=== PATIENT | female | born 1975 | race Caucasian/White ===

== ENCOUNTER → 2017-11-01 | Outpatient (CLI) | payer OTHER ==
[~2017-11-01] MED LIST: ACYC200 PO; ACYC400 PO; AEROBIKA1 EACH INH; ALBU90OI; ALBU90OI INH; AZIT500 PO; Acetaminophen-1 EAC1 PO; Ambien10 MG PO; BENZ100A PO; BISO5 PO; Bactrim Ds Tab1 EACH; Bactrim Ds Tab1 EACH PO; Bisoprolol Fumar5 MG PO; CEPH500 PO; Cleocin HCl150 MG PO; DEXT30SU PO; DIAZ10 PO; DIAZ2 PO; DOCU100 PO; DULERA 200 MCG/13 GM INH; ESTR.05PBW; ESTR.1TPW TOP; ESTR2 PO; ESTRADIOL1 MG; ESTROVEN 155 M155 MG PO; FLUO10 PO; GUAI120S1 PO; GUAI600T33 PO; GUAIFENESIN1200 MG PO; HYDR1TAB94 PO; IBUP600 PO; IBUP800 PO; LACTULOSE20 GM/30 M PO; METPRE4DP PO; MONT10T PO; MULVITMIND; Microgestin1 EACH; Multivitamin1 EAC1 PO; NASAL DECONGEST30 MG PO; Norco 10-325 T1 EACH PO; Norco 5-325 Ta1 EACH PO; OMEP20ER; OXYACE5T PO; OXYACE7.5T PO; Omeprazole20 M1; Omeprazole20 M1 PO; PRODEXEL PO; PROM25 PO; Percocet 5-3251 EACH PO; Phentermine HCl15 MG PO; Prednisone20 MG PO; Prozac20 MG PO; Pyridium200 MG PO; QUET300 PO; QUETIAPINE FUM400 MG; QUETIAPINE FUMA50 MG PO; TYLECOD3; Ultram50 MG PO; Zithromax250 MG PO; Zofran Odt4 MG PO; Zofran Odt4 MG SL; Zofran4 MG
[2017-11-01 12:05] LABS: Bilirubin, Urine Neg (Neg); Blood, Urine 1+ (Neg); Glucose Qualitative, Urine Neg (Neg); Ketones, Urine Neg (Neg); Leukocyte Esterase, Urine 1+ (Neg); Nitrite, Urine Neg (Neg); Protein, Urine 1+ (Neg); Specific Gravity, Urine 1.015 (1.003-1.022); Urobilinogen, Urine NORM (Normal)
[2017-11-01 12:14] LABS: Appearance, Urine Hazy (Clear); Color, Urine Yellow (P-Yellow)
[2017-11-01 12:17] LABS: Bacteria Few /hpf; Red Blood Cells, Urine 0-2 /hpf (0-2); Squamous Epithelial Cells Many /hpf (Few)
== END ==
LOC: LAB 09:39
PROVIDERS: Nurse Practitioner Family
DX: R30.0 Dysuria (principal)
CPT/HCPCS: 81001; 87086; 87147

== ENCOUNTER 2017-11-11 16:19 | Emergency (ER) | payer OTHER ==
[~2017-11-11] VITALS: Ht 170.2 cm; Wt 122.5 kg
[~2017-11-11 16:19] MED LIST changes: -ACYC200 PO; -ACYC400 PO; -AEROBIKA1 EACH INH; -BENZ100A PO; -Bactrim Ds Tab1 EACH; -Bisoprolol Fumar5 MG PO; -DEXT30SU PO; -DIAZ2 PO; -DULERA 200 MCG/13 GM INH; -ESTR2 PO; -GUAI600T33 PO; -MONT10T PO; -Prozac20 MG PO; -TYLECOD3
[2017-11-11 17:09] LABS: BASOPHILS ABSOLUTE AUTO 0.04 K/mm3 (0.00-0.23); BASOPHILS PERCENT AUTO 1 % (0-2); EOSINOPHILS ABSOLUTE AUTO 0.33 K/mm3 (0.00-0.68); EOSINOPHILS PERCENT AUTO 6 % (0-6); Hematocrit 39.9 % (33.0-51.0); Hemoglobin 12.9 g/dL (11.5-16.0); IMMATURE GRAN ABSOLUTE AUTO 0.01 K/mm3 (0.00-0.10); IMMATURE GRAN PERCENT AUTO 0 % (0-1); LYMPHOCYTES ABSOLUTE AUTO 1.36 K/mm3 (0.84-5.20); LYMPHOCYTES PERCENT AUTO 23 % (21-46); MONOCYTES ABSOLUTE AUTO 0.47 K/mm3 (0.16-1.47); MONOCYTES PERCENT AUTO 8 % (4-13); Mean Corpuscular HGB 32.2 pg (26.0-34.0); Mean Corpuscular HGB Conc 32.3 g/dL (31.5-36.5); Mean Corpuscular Volume 100 fL (80-100); Mean Platelet Volume 9.9 fL (9.1-12.4); NEUTROPHILS ABSOLUTE AUTO 3.68 K/mm3 (1.96-9.15); NEUTROPHILS PERCENT AUTO 62 % (41-73); Platelet Count 256 K/mm3 (150-400); RDW Coefficient Variation 12.5 % (11.7-14.2); Red Blood Cell Count 4.01 M/mm3 (3.80-5.20); White Blood Cell Count 5.89 K/mm3 (4.00-11.30)
[2017-11-11 17:27] LABS: Alanine Aminotransfer (ALT/SGP 39 U/L (12-78); Albumin, Blood 3.3 g/dL (3.4-5.0); Albumin/Globulin Ratio 0.8 (0.8-1.8); Alk Phos 92 U/L (50-136); Anion Gap 9 mmol/L (6-16); Aspartate Aminotrans (AST/SGOT 31 U/L (12-37); Bilirubin, Total 0.4 mg/dL (0.1-1.0); Blood Urea Nitrogen 12 mg/dL (8-24); Bun/Creatinine Ratio 17.3 (12.0-20.0); CO2, Blood 25 mmol/L (21-32); Calcium, Blood 8.5 mg/dL (8.5-10.1); Chloride, Blood 105 mmol/L (98-108); Creatinine, Blood 0.69 mg/dL (0.40-1.00); Globulin, Blood 4.1 g/dL (2.2-4.0); Glomerular Filtration Rate >60 (60-); Glucose, Blood 103 mg/dL (70-99); Potassium, Blood 3.9 mmol/L (3.5-5.5); Sodium, Blood 139 mmol/L (136-145); Total Protein, Blood 7.4 g/dL (6.4-8.2)
[2017-11-11] MEDS ORDERED: DIAZ2 PO (17:56)
[2017-11-11] MEDS ORDERED: ACYC200 PO (17:56)
[2017-11-11] MEDS ORDERED: ALBU90OI INH (17:58)
[2017-11-11] MEDS ORDERED: AEROBIKA1 EACH INH (17:58)
== END 2017-11-11 20:04 | disposition home or self-care (01) ==
LOC: ER 16:19
PROVIDERS: Student in an Organized Health Care Education/Training Program
DX: J44.9 Chronic obstructive pulmonary disease, unspecified (principal); Z88.0 Allergy status to penicillin; Z79.899 Other long term (current) drug therapy; Z90.710 Acquired absence of both cervix and uterus; Z90.89 Acquired absence of other organs; Z87.891 Personal history of nicotine dependence
CPT/HCPCS: 36415; 71046; 80053; 85025; 94640; 96374; 99283; J1100

== ENCOUNTER 2017-11-17 13:52 | Inpatient (IN) | payer OTHER ==
[~2017-11-17] VITALS: Ht 170.2 cm; Wt 128.0 kg
[~2017-11-17 13:52] MED LIST changes: +ACYC200 PO; +AEROBIKA1 EACH INH; +DIAZ2 PO
[2017-11-17 14:16] LABS: BASOPHILS ABSOLUTE AUTO 0.05 K/mm3 (0.00-0.23); BASOPHILS PERCENT AUTO 1 % (0-2); EOSINOPHILS ABSOLUTE AUTO 0.78 K/mm3 (0.00-0.68); EOSINOPHILS PERCENT AUTO 8 % (0-6); Hematocrit 41.2 % (33.0-51.0); Hemoglobin 13.4 g/dL (11.5-16.0); IMMATURE GRAN PERCENT AUTO 1 % (0-1); LYMPHOCYTES PERCENT AUTO 18 % (21-46); MONOCYTES PERCENT AUTO 9 % (4-13); Mean Corpuscular HGB 32.1 pg (26.0-34.0); Mean Corpuscular HGB Conc 32.5 g/dL (31.5-36.5); Mean Corpuscular Volume 99 fL (80-100); Mean Platelet Volume 9.8 fL (9.1-12.4); NEUTROPHILS ABSOLUTE AUTO 6.12 K/mm3 (1.96-9.15); NEUTROPHILS PERCENT AUTO 64 % (41-73); Platelet Count 320 K/mm3 (150-400); RDW Coefficient Variation 12.6 % (11.7-14.2); RDW Standard Deviation 45.6 fL (35.1-46.3); Red Blood Cell Count 4.17 M/mm3 (3.80-5.20); White Blood Cell Count 9.65 K/mm3 (4.00-11.30)
[2017-11-17 14:28] LABS: Alanine Aminotransfer (ALT/SGP 38 U/L (12-78); Albumin, Blood 3.2 g/dL (3.4-5.0); Albumin/Globulin Ratio 0.7 (0.8-1.8); Alk Phos 113 U/L (50-136); Anion Gap 8 mmol/L (6-16); Aspartate Aminotrans (AST/SGOT 27 U/L (12-37); Bilirubin, Total 0.2 mg/dL (0.1-1.0); Blood Urea Nitrogen 10 mg/dL (8-24); Bun/Creatinine Ratio 15.6 (12.0-20.0); CO2, Blood 25 mmol/L (21-32); Calcium, Blood 8.2 mg/dL (8.5-10.1); Chloride, Blood 106 mmol/L (98-108); Creatinine, Blood 0.64 mg/dL (0.40-1.00); Globulin, Blood 4.6 g/dL (2.2-4.0); Glomerular Filtration Rate >60 (60-); Glucose, Blood 111 mg/dL (70-99); Potassium, Blood 4.2 mmol/L (3.5-5.5); Sodium, Blood 139 mmol/L (136-145); Total Protein, Blood 7.8 g/dL (6.4-8.2)
[2017-11-17 14:33] LABS: International Normalized Ratio 0.97; Prothrombin Time Results 10.1 Sec (9.7-11.5)
[2017-11-17 14:40] LABS: Troponin I <0.015 ng/mL (0.000-0.040)
[2017-11-17] MEDS ORDERED: IBUP800 PO (14:50)
[2017-11-17] MEDS ORDERED: Bactrim Ds Tab1 EACH (14:50)
[2017-11-17] MEDS ORDERED: TYLECOD3 (14:50)
[2017-11-17] MEDS ORDERED: Bisoprolol Fumar5 MG PO (14:51)
[2017-11-17] MEDS ORDERED: Prozac20 MG PO (14:51)
[2017-11-17] MEDS ORDERED: QUET300 PO (14:52)
[2017-11-17] MEDS ORDERED: ESTR2 PO (14:52)
[2017-11-17] MEDS ORDERED: ACYC400 PO (14:53)
[2017-11-17 16:07] LABS: Influenza A Negative (NEGATIVE); Influenza B Negative (NEGATIVE)
[2017-11-17] MEDS ORDERED: DIAZ10 PO (18:12)
[2017-11-17] MEDS ORDERED: Omeprazole20 M1 PO (18:13)
[2017-11-17] MEDS ORDERED: GUAI600T33 PO (18:15)
[2017-11-17] MEDS ORDERED: DEXT30SU PO (18:18)
[2017-11-17 21:35] LABS: Source, Urine Voided
[2017-11-17 21:40] LABS: Bilirubin, Urine Neg (Neg); Blood, Urine Neg (Neg); Glucose Qualitative, Urine Neg (Neg); Ketones, Urine Neg (Neg); Leukocyte Esterase, Urine Neg (Neg); Nitrite, Urine Neg (Neg); Protein, Urine 1+ (Neg); Urobilinogen, Urine NORM (Normal)
[2017-11-17 21:47] LABS: Appearance, Urine Clear (Clear); Color, Urine Yellow (P-Yellow)
[2017-11-18 04:58] LABS: BASOPHILS ABSOLUTE AUTO 0.03 K/mm3 (0.00-0.23); BASOPHILS PERCENT AUTO 0 % (0-2); EOSINOPHILS ABSOLUTE AUTO 0.02 K/mm3 (0.00-0.68); EOSINOPHILS PERCENT AUTO 0 % (0-6); Hematocrit 38.6 % (33.0-51.0); Hemoglobin 12.3 g/dL (11.5-16.0); IMMATURE GRAN ABSOLUTE AUTO 0.35 K/mm3 (0.00-0.10); IMMATURE GRAN PERCENT AUTO 2 % (0-1); LYMPHOCYTES ABSOLUTE AUTO 1.04 K/mm3 (0.84-5.20); LYMPHOCYTES PERCENT AUTO 7 % (21-46); MONOCYTES ABSOLUTE AUTO 0.35 K/mm3 (0.16-1.47); MONOCYTES PERCENT AUTO 2 % (4-13); Mean Corpuscular HGB 32.2 pg (26.0-34.0); Mean Corpuscular HGB Conc 31.9 g/dL (31.5-36.5); Mean Corpuscular Volume 101 fL (80-100); Mean Platelet Volume 9.9 fL (9.1-12.4); NEUTROPHILS ABSOLUTE AUTO 12.53 K/mm3 (1.96-9.15); NEUTROPHILS PERCENT AUTO 88 % (41-73); Platelet Count 321 K/mm3 (150-400); RDW Coefficient Variation 12.7 % (11.7-14.2); RDW Standard Deviation 46.9 fL (35.1-46.3); Red Blood Cell Count 3.82 M/mm3 (3.80-5.20); White Blood Cell Count 14.32 K/mm3 (4.00-11.30)
[2017-11-18 05:20] LABS: Anion Gap 11 mmol/L (6-16); Blood Urea Nitrogen 7 mg/dL (8-24); Bun/Creatinine Ratio 12.3 (12.0-20.0); CO2, Blood 20 mmol/L (21-32); Calcium, Blood 7.6 mg/dL (8.5-10.1); Chloride, Blood 108 mmol/L (98-108); Creatinine, Blood 0.57 mg/dL (0.40-1.00); Glomerular Filtration Rate >60 (60-); Glucose, Blood 216 mg/dL (70-99); Potassium, Blood 3.3 mmol/L (3.5-5.5); Sodium, Blood 139 mmol/L (136-145)
[2017-11-18 05:29] LABS: Adenovirus Not Detected (NOT DETECT); Bordetella pertussis Not Detected (NOT DETECT); Chlamydophila pneumoniae Not Detected (NOT DETECT); Coronavirus 229E Not Detected (NOT DETECT); Coronavirus HKU1 Not Detected (NOT DETECT); Coronavirus NL63 Not Detected (NOT DETECT); Coronavirus OC43 Not Detected (NOT DETECT); Human Metapneumovirus Not Detected (NOT DETECT); Human Rhinovirus/Enterovirus Not Detected (NOT DETECT); Influenza A/2009-H1 Not Detected (NOT DETECT); Influenza A/H1 Not Detected (NOT DETECT); Influenza A/H3 Not Detected (NOT DETECT); Influenza B Not Detected (NOT DETECT); Mycoplasma pneumoniae Not Detected (NOT DETECT); Parainfluenza Virus 1 Not Detected (NOT DETECT); Parainfluenza Virus 2 Not Detected (NOT DETECT); Parainfluenza Virus 3 Not Detected (NOT DETECT); Parainfluenza Virus 4 Not Detected (NOT DETECT); Respiratory Syncytial Virus Not Detected (NOT DETECT)
[2017-11-18 06:38] LABS: Influenza A Not Detected (NOT DETECT)
[2017-11-20 05:19] LABS: Hematocrit 36.8 % (33.0-51.0); Hemoglobin 11.5 g/dL (11.5-16.0); Mean Corpuscular HGB 31.7 pg (26.0-34.0); Mean Corpuscular HGB Conc 31.3 g/dL (31.5-36.5); Mean Corpuscular Volume 101 fL (80-100); Mean Platelet Volume 9.9 fL (9.1-12.4); Platelet Count 257 K/mm3 (150-400); RDW Coefficient Variation 12.5 % (11.7-14.2); RDW Standard Deviation 47.6 fL (35.1-46.3); Red Blood Cell Count 3.63 M/mm3 (3.80-5.20); White Blood Cell Count 12.23 K/mm3 (4.00-11.30)
[2017-11-20 05:37] LABS: Percent Saturation 21.2 % (15.0-50.0)
[2017-11-20 05:46] LABS: BAND PERCENT MAN 4 % (0-8); BASOPHILS PERCENT MAN 0 % (0-2); EOSINOPHILS ABSOLUTE MAN 0.12 K/mm3 (0.00-0.68); EOSINOPHILS PERCENT MAN 1 % (0-6); LYMPHOCYTES ABSOLUTE MAN 1.95 K/mm3 (0.84-5.20); LYMPHOCYTES PERCENT MAN 16 % (21-46); MONOCYTES ABSOLUTE MAN 0.48 K/mm3 (0.16-1.47); MONOCYTES PERCENT MAN 4 % (4-13); MYELOCYTE ABSOLUTE MAN 0.24 K/mm3 (0.00-0.00); MYELOCYTE PERCENT MAN 2 % (0-0); NEUTROPHILS ABSOLUTE MAN 9.41 K/mm3 (1.96-9.15); SEG NEUTROPHILS PERCENT MAN 73 % (41-73); TOTAL CELLS COUNTED 100
[2017-11-20 06:21] LABS: Thyroid Stimulating Hormone 2.9 uIU/mL (0.360-4.800)
[2017-11-21 07:00] LABS: BASOPHILS ABSOLUTE AUTO 0.04 K/mm3 (0.00-0.23); BASOPHILS PERCENT AUTO 0 % (0-2); EOSINOPHILS ABSOLUTE AUTO 0.58 K/mm3 (0.00-0.68); EOSINOPHILS PERCENT AUTO 6 % (0-6); Hematocrit 37.9 % (33.0-51.0); Hemoglobin 12.2 g/dL (11.5-16.0); IMMATURE GRAN ABSOLUTE AUTO 0.56 K/mm3 (0.00-0.10); IMMATURE GRAN PERCENT AUTO 6 % (0-1); LYMPHOCYTES ABSOLUTE AUTO 2.34 K/mm3 (0.84-5.20); LYMPHOCYTES PERCENT AUTO 25 % (21-46); MONOCYTES ABSOLUTE AUTO 0.68 K/mm3 (0.16-1.47); MONOCYTES PERCENT AUTO 7 % (4-13); Mean Corpuscular HGB Conc 32.2 g/dL (31.5-36.5); Mean Corpuscular Volume 100 fL (80-100); Mean Platelet Volume 9.3 fL (9.1-12.4); NEUTROPHILS ABSOLUTE AUTO 5.24 K/mm3 (1.96-9.15); NEUTROPHILS PERCENT AUTO 56 % (41-73); NRBC ABSOLUTE 0.04 K/mm3 (0.00-0.02); NRBC Auto 0.4 /100 WBC (0.0-0.2); Platelet Count 256 K/mm3 (150-400); RDW Coefficient Variation 12.6 % (11.7-14.2); RDW Standard Deviation 46.3 fL (35.1-46.3); Red Blood Cell Count 3.81 M/mm3 (3.80-5.20); White Blood Cell Count 9.44 K/mm3 (4.00-11.30)
[2017-11-21 07:21] LABS: Alanine Aminotransfer (ALT/SGP 31 U/L (12-78); Albumin, Blood 2.6 g/dL (3.4-5.0); Albumin/Globulin Ratio 0.7 (0.8-1.8); Alk Phos 87 U/L (50-136); Anion Gap 7 mmol/L (6-16); Aspartate Aminotrans (AST/SGOT 22 U/L (12-37); Bilirubin, Total 0.3 mg/dL (0.1-1.0); Blood Urea Nitrogen 11 mg/dL (8-24); CO2, Blood 25 mmol/L (21-32); Calcium, Blood 7.7 mg/dL (8.5-10.1); Chloride, Blood 107 mmol/L (98-108); Creatinine, Blood 0.69 mg/dL (0.40-1.00); Globulin, Blood 3.9 g/dL (2.2-4.0); Glomerular Filtration Rate >60 (60-); Glucose, Blood 78 mg/dL (70-99); Sodium, Blood 139 mmol/L (136-145); Total Protein, Blood 6.5 g/dL (6.4-8.2)
[2017-11-22 05:35] LABS: Hematocrit 39.5 % (33.0-51.0); Hemoglobin 12.7 g/dL (11.5-16.0); Mean Corpuscular HGB 31.9 pg (26.0-34.0); Mean Corpuscular HGB Conc 32.2 g/dL (31.5-36.5); Mean Corpuscular Volume 99 fL (80-100); Mean Platelet Volume 9.3 fL (9.1-12.4); Platelet Count 262 K/mm3 (150-400); RDW Coefficient Variation 12.4 % (11.7-14.2); RDW Standard Deviation 45.3 fL (35.1-46.3); Red Blood Cell Count 3.98 M/mm3 (3.80-5.20); White Blood Cell Count 8.77 K/mm3 (4.00-11.30)
[2017-11-22 05:57] LABS: Alanine Aminotransfer (ALT/SGP 39 U/L (12-78); Albumin, Blood 2.5 g/dL (3.4-5.0); Albumin/Globulin Ratio 0.6 (0.8-1.8); Alk Phos 89 U/L (50-136); Anion Gap 7 mmol/L (6-16); Aspartate Aminotrans (AST/SGOT 28 U/L (12-37); Bilirubin, Total 0.3 mg/dL (0.1-1.0); Blood Urea Nitrogen 11 mg/dL (8-24); Bun/Creatinine Ratio 13.9 (12.0-20.0); CO2, Blood 28 mmol/L (21-32); Calcium, Blood 7.9 mg/dL (8.5-10.1); Chloride, Blood 104 mmol/L (98-108); Creatinine, Blood 0.79 mg/dL (0.40-1.00); Globulin, Blood 4.1 g/dL (2.2-4.0); Glomerular Filtration Rate >60 (60-); Glucose, Blood 82 mg/dL (70-99); Potassium, Blood 4.1 mmol/L (3.5-5.5); Sodium, Blood 139 mmol/L (136-145); Total Protein, Blood 6.6 g/dL (6.4-8.2)
[2017-11-22 06:00] LABS: BAND PERCENT MAN 1 % (0-8); BASOPHILS PERCENT MAN 0 % (0-2); EOSINOPHILS ABSOLUTE MAN 0.61 K/mm3 (0.00-0.68); EOSINOPHILS PERCENT MAN 7 % (0-6); LYMPHOCYTES % ATYPICAL MANUAL 6 % (0-0); LYMPHOCYTES ABSOLUTE MAN 2.28 K/mm3 (0.84-5.20); LYMPHOCYTES PERCENT MAN 20 % (21-46); METAMYELOCYTE ABSOLUTE MAN 0.08 K/mm3 (0.00-0.00); METAMYELOCYTE PERCENT MAN 1 % (0-0); MONOCYTES PERCENT MAN 8 % (4-13); NEUTROPHILS ABSOLUTE MAN 5.08 K/mm3 (1.96-9.15); SEG NEUTROPHILS PERCENT MAN 57 % (41-73); TOTAL CELLS COUNTED 100
[2017-11-22] MEDS ORDERED: AZIT500 PO (12:09)
[2017-11-22] MEDS ORDERED: MONT10T PO (12:09)
[2017-11-22] MEDS ORDERED: BENZ100A PO (12:09)
[2017-11-22] MEDS ORDERED: ALBU90OI INH (12:10)
[2017-11-22] MEDS ORDERED: DULERA 200 MCG/13 GM INH (12:10)
== END 2017-11-22 12:45 | disposition home or self-care (01) | DRG 191 ==
LOC: ER 13:52 → PCU 13:53 → MEDS 13:53 → ER 13:53 → MEDS 13:53 → PCU 13:53 → ER 16:41 → PCU 16:41 → MEDS 11-18 16:07 → PCU 11-18 16:07 → MEDS 11-19 10:22 → ENPENDDIS 11-22 10:00 → MEDS 11-22 12:45
PROVIDERS: Emergency Medicine; Hospitalist; Internal Medicine
DX: J44.1 Chronic obstructive pulmonary disease with (acute) exacerbation (principal); R04.2 Hemoptysis; F31.9 Bipolar disorder, unspecified; Z88.0 Allergy status to penicillin; Z87.891 Personal history of nicotine dependence; F41.9 Anxiety disorder, unspecified
CPT/HCPCS: 36415; 71045; 71046; 71260; 80048; 80053; 82533; 82607; 82728; 82746; 83540; 83550; 83605; 83880; 84145; 84443; 84484; 85025; 85610; 85651; 85730; 87040; 87070; 87086; 87205; 87486; 87581; 87633; 87798; 87804; 90670; 93005; 93010; 93306; 94640; 94644; 94667; 94760; 96365; 96366; 96367; 96375; 99285; C1751; J0456; J0696; J1650; J1885; J2920; J2930; J7030; J7050; Q9967

== ENCOUNTER → 2018-01-11 | Outpatient (CLI) | payer OTHER ==
[~2018-01-11] MED LIST changes: +ACYC400 PO; +BENZ100A PO; +Bactrim Ds Tab1 EACH; +Bisoprolol Fumar5 MG PO; +DEXT30SU PO; +DULERA 200 MCG/13 GM INH; +ESTR2 PO; +GUAI600T33 PO; +MONT10T PO; +Prozac20 MG PO; +TYLECOD3
== END ==
LOC: LAB 10:45 → LAB SHORT 10:45
DX: T81.4XXA Infection following a procedure, initial encounter (principal)
CPT/HCPCS: 87070; 87075; 87077; 87147; 87186; 87205

== ENCOUNTER 2019-02-15 11:48 | Emergency (ER) | payer OTHER ==
[~2019-02-15] VITALS: Ht 170.2 cm; Wt 101.2 kg
[2019-02-15 12:14] LABS: Source, Urine Clean Catch
[2019-02-15 12:16] LABS: Blood, Urine 1+ (Neg); Glucose Qualitative, Urine Neg (Neg); Ketones, Urine 1+ (Neg); Leukocyte Esterase, Urine 2+ (Neg); Nitrite, Urine Pos (Neg); Protein, Urine 3+ (Neg); Specific Gravity, Urine 1.015 (1.003-1.022); Urobilinogen, Urine 2+ (Normal); pH, Urine 6.5 (5.0-8.0)
[2019-02-15 12:26] LABS: BASOPHILS ABSOLUTE AUTO 0.05 K/mm3 (0.00-0.23); BASOPHILS PERCENT AUTO 1 % (0-2); EOSINOPHILS ABSOLUTE AUTO 0.26 K/mm3 (0.00-0.68); EOSINOPHILS PERCENT AUTO 5 % (0-6); Hematocrit 44.4 % (33.0-51.0); Hemoglobin 14.4 g/dL (11.5-16.0); IMMATURE GRAN ABSOLUTE AUTO 0.03 K/mm3 (0.00-0.10); IMMATURE GRAN PERCENT AUTO 1 % (0-1); LYMPHOCYTES ABSOLUTE AUTO 1.12 K/mm3 (0.84-5.20); LYMPHOCYTES PERCENT AUTO 22 % (21-46); MONOCYTES ABSOLUTE AUTO 0.48 K/mm3 (0.16-1.47); MONOCYTES PERCENT AUTO 10 % (4-13); Mean Corpuscular HGB 35.2 pg (26.0-34.0); Mean Corpuscular HGB Conc 32.4 g/dL (31.5-36.5); Mean Corpuscular Volume 109 fL (80-100); Mean Platelet Volume 9.8 fL (9.1-12.4); NEUTROPHILS ABSOLUTE AUTO 3.11 K/mm3 (1.96-9.15); NEUTROPHILS PERCENT AUTO 62 % (41-73); Platelet Count 214 K/mm3 (150-400); RDW Coefficient Variation 12.2 % (11.7-14.2); RDW Standard Deviation 48.7 fL (35.1-46.3); Red Blood Cell Count 4.09 M/mm3 (3.80-5.20); White Blood Cell Count 5.05 K/mm3 (4.00-11.30)
[2019-02-15 12:32] LABS: Appearance, Urine Hazy (Clear); Bilirubin, Urine 1+ (Neg); Color, Urine Amber (P-Yellow)
[2019-02-15 12:33] LABS: Red Blood Cells, Urine 0-2 /hpf (0-2)
[2019-02-15 12:34] LABS: Bacteria Mod /hpf; Squamous Epithelial Cells Mod /hpf (Few)
[2019-02-15 12:52] LABS: Alanine Aminotransfer (ALT/SGP 257 U/L (12-78); Albumin, Blood 3.8 g/dL (3.4-5.0); Albumin/Globulin Ratio 0.8 (0.8-1.8); Alk Phos 156 U/L (50-136); Anion Gap 6 mmol/L (6-16); Aspartate Aminotrans (AST/SGOT 265 U/L (12-37); Bilirubin, Total 1.3 mg/dL (0.1-1.0); Blood Urea Nitrogen 9 mg/dL (8-24); Bun/Creatinine Ratio 11.3 (12.0-20.0); CO2, Blood 29 mmol/L (21-32); Calcium, Blood 9.2 mg/dL (8.5-10.1); Chloride, Blood 101 mmol/L (98-108); Creatinine, Blood 0.79 mg/dL (0.40-1.00); Globulin, Blood 4.9 g/dL (2.2-4.0); Glomerular Filtration Rate >60 (60-); Glucose, Blood 108 mg/dL (70-99); Potassium, Blood 4.6 mmol/L (3.5-5.5); Sodium, Blood 136 mmol/L (136-145); Total Protein, Blood 8.7 g/dL (6.4-8.2)
[2019-02-15 16:20] LABS: Source, Urine Clean Catch
[2019-02-15 16:41] LABS: Blood, Urine Neg (Neg); Glucose Qualitative, Urine Neg (Neg); Ketones, Urine 3+ (Neg); Leukocyte Esterase, Urine 1+ (Neg); Nitrite, Urine Neg (Neg); Protein, Urine 2+ (Neg); Urobilinogen, Urine 2+ (Normal)
[2019-02-15 16:53] LABS: Appearance, Urine Clear (Clear); Bilirubin, Urine 1+ (Neg); Color, Urine Yellow (P-Yellow)
[2019-02-15 16:54] LABS: Bacteria Few /hpf; Mucus Light ({null, 0-Heavy}); Red Blood Cells, Urine 0-2 /hpf (0-2); Squamous Epithelial Cells Few /hpf (Few)
[2019-02-15] MEDS ORDERED: Bactrim Ds Tab1 EACH PO (17:04)
== END 2019-02-15 17:17 | disposition home or self-care (01) ==
LOC: ER 11:48
PROVIDERS: Emergency Medicine
DX: N39.0 Urinary tract infection, site not specified (principal); R79.89 Other specified abnormal findings of blood chemistry; F31.9 Bipolar disorder, unspecified; F43.10 Post-traumatic stress disorder, unspecified; Z88.0 Allergy status to penicillin; Z79.2 Long term (current) use of antibiotics; Z79.899 Other long term (current) drug therapy
CPT/HCPCS: 36415; 71046; 80053; 81001; 83690; 85025; 87086; 99283-25

== ENCOUNTER 2019-03-22 02:27 | Emergency (ER) | payer OTHER ==
[~2019-03-22] VITALS: Ht 170.2 cm; Wt 101.6 kg
[2019-03-22] MEDS ORDERED: THERA1 EACH PO (04:11)
[2019-03-22] MEDS ORDERED: Bisoprolol Fumar5 MG PO (04:12)
[2019-03-22 04:25] LABS: Source, Urine Clean Catch
[2019-03-22 04:28] LABS: BASOPHILS ABSOLUTE AUTO 0.05 K/mm3 (0.00-0.23); BASOPHILS PERCENT AUTO 1 % (0-2); EOSINOPHILS ABSOLUTE AUTO 0.22 K/mm3 (0.00-0.68); EOSINOPHILS PERCENT AUTO 3 % (0-6); Hemoglobin 13.4 g/dL (11.5-16.0); IMMATURE GRAN ABSOLUTE AUTO 0.02 K/mm3 (0.00-0.10); IMMATURE GRAN PERCENT AUTO 0 % (0-1); LYMPHOCYTES ABSOLUTE AUTO 0.89 K/mm3 (0.84-5.20); LYMPHOCYTES PERCENT AUTO 14 % (21-46); MONOCYTES ABSOLUTE AUTO 0.63 K/mm3 (0.16-1.47); MONOCYTES PERCENT AUTO 10 % (4-13); Mean Corpuscular HGB 35.5 pg (26.0-34.0); Mean Corpuscular HGB Conc 32.7 g/dL (31.5-36.5); Mean Corpuscular Volume 109 fL (80-100); Mean Platelet Volume 9.7 fL (9.1-12.4); NEUTROPHILS ABSOLUTE AUTO 4.71 K/mm3 (1.96-9.15); NEUTROPHILS PERCENT AUTO 72 % (41-73); Platelet Count 190 K/mm3 (150-400); RDW Coefficient Variation 12.7 % (11.7-14.2); RDW Standard Deviation 50.4 fL (35.1-46.3); Red Blood Cell Count 3.77 M/mm3 (3.80-5.20); White Blood Cell Count 6.52 K/mm3 (4.00-11.30)
[2019-03-22 04:31] LABS: Appearance, Urine Cloudy (Clear); Bilirubin, Urine Neg (Neg); Blood, Urine 5+ (Neg); Color, Urine Amber (P-Yellow); Glucose Qualitative, Urine Neg (Neg); Ketones, Urine Neg (Neg); Leukocyte Esterase, Urine 3+ (Neg); Nitrite, Urine Neg (Neg); Protein, Urine 3+ (Neg); Specific Gravity, Urine 1.025 (1.003-1.022); Urobilinogen, Urine NORM (Normal)
[2019-03-22 04:35] LABS: White Blood Cells, Urine TNTC /hpf (0-5)
[2019-03-22 04:36] LABS: Bacteria Many /hpf; Red Blood Cells, Urine 25-50 /hpf (0-2); Squamous Epithelial Cells Few /hpf (Few)
[2019-03-22 04:51] LABS: Alanine Aminotransfer (ALT/SGP 72 U/L (12-78); Albumin, Blood 3.5 g/dL (3.4-5.0); Albumin/Globulin Ratio 0.8 (0.8-1.8); Alk Phos 102 U/L (50-136); Anion Gap 5 mmol/L (6-16); Aspartate Aminotrans (AST/SGOT 45 U/L (12-37); Bilirubin, Total 0.6 mg/dL (0.1-1.0); Blood Urea Nitrogen 14 mg/dL (8-24); Bun/Creatinine Ratio 20.7 (12.0-20.0); CO2, Blood 27 mmol/L (21-32); Calcium, Blood 8.8 mg/dL (8.5-10.1); Chloride, Blood 108 mmol/L (98-108); Creatinine, Blood 0.68 mg/dL (0.40-1.00); Globulin, Blood 4.3 g/dL (2.2-4.0); Glomerular Filtration Rate >60 (60-); Glucose, Blood 108 mg/dL (70-99); Potassium, Blood 4.3 mmol/L (3.5-5.5); Sodium, Blood 140 mmol/L (136-145); Total Protein, Blood 7.8 g/dL (6.4-8.2)
[2019-03-22] MEDS ORDERED: CEFP200 PO (05:51)
== END 2019-03-22 06:09 | disposition home or self-care (01) ==
LOC: ER 02:27
PROVIDERS: Emergency Medicine
DX: R31.9 Hematuria, unspecified (principal); Z87.891 Personal history of nicotine dependence; Z88.0 Allergy status to penicillin; Z79.899 Other long term (current) drug therapy
CPT/HCPCS: 76770; 80053; 81001; 85025; 99284-25

== ENCOUNTER → 2019-05-10 | Outpatient (CLI) | payer OTHER ==
[~2019-05-10] MED LIST changes: +CEFP200 PO; +THERA1 EACH PO
== END | disposition home or self-care (01) ==
LOC: LAB 13:37 → LAB SHORT 13:37
DX: R10.30 Lower abdominal pain, unspecified (principal)
CPT/HCPCS: 87077; 87086; 87186

== ENCOUNTER 2019-08-05 07:01 | Emergency (ER) | payer OTHER ==
[~2019-08-05] VITALS: Ht 170.2 cm; Wt 101.2 kg
[2019-08-05] MEDS ORDERED: DICL75ER PO (08:57)
[2019-08-05] MEDS ORDERED: Ultram50 MG PO (08:57)
[2019-08-05] MEDS ORDERED: Cipro500 MG PO (08:57)
== END 2019-08-05 09:12 | disposition home or self-care (01) ==
LOC: ER 07:01
DX: H61.001 Unspecified perichondritis of right external ear (principal); H61.031 Chondritis of right external ear; Z87.891 Personal history of nicotine dependence; R59.0 Localized enlarged lymph nodes; Z88.0 Allergy status to penicillin; Z79.899 Other long term (current) drug therapy

== ENCOUNTER 2020-07-03 08:38 | Emergency (ER) | payer OTHER | END 2020-07-03 12:30 | disposition home or self-care (01) | LOC: ER 08:38 | DX: K52.9 Noninfective gastroenteritis and colitis, unspecified (principal); Z88.0 Allergy status to penicillin; Z79.899 Other long term (current) drug therapy ==

== ENCOUNTER 2021-07-08 10:19 | Emergency (ER) | payer OTHER ==
[~2021-07-08] VITALS: Ht 170.2 cm; Wt 100.7 kg
[~2021-07-08 10:19] MED LIST changes: +Cipro500 MG PO; +DIAZ5 PO; +DICL75ER PO; +Flagyl500 MG PO
== END 2021-07-08 10:37 | disposition home or self-care (01) ==
LOC: ER 10:19
DX: U07.1 COVID-19 (principal); Z87.891 Personal history of nicotine dependence; Z88.0 Allergy status to penicillin; Z79.899 Other long term (current) drug therapy; K21.9 Gastro-esophageal reflux disease without esophagitis
CPT/HCPCS: 99284